=== PATIENT | male | born 1955 | race Caucasian/White ===

== ENCOUNTER → 2016-03-14 | Outpatient (CLI) | payer OTHER | LOC: HEDF 20:18 | DX: M79.605 Pain in left leg (principal); S01.81XA Laceration without foreign body of other part of head, initial encounter; S80.811A Abrasion, right lower leg, initial encounter; S70.311A Abrasion, right thigh, initial encounter; V29.9XXA Motorcycle rider (driver) (passenger) injured in unspecified traffic accident, initial encounter | CPT/HCPCS: A0431; A0436 ==